=== PATIENT | female | born 1955 | race Caucasian/White ===

== ENCOUNTER 2024-04-08 16:31 | Emergency (ER) | payer MEDICARE, OTHER ==
[~2024-04-08] VITALS: Ht 165.1 cm; Wt 105.5 kg
[~2024-04-08 16:31] MED LIST: ASPIRIN 81M81 MG/TA2 PO; BUSPAR DIVIDOSE15 MG PO; COZAAR 50MG50 MG/TAB PO; FLEXERIL 1010 MG/TAB PO; IMURAN 50MG TAB50 MG PO; LAMICTAL200 MG PO; LIPITOR 80MG80 MG PO; LOPRESSOR 225 MG/TAB PO; MIRAPEX 1MG PO; NITROSTAT0.4 MG/TAB SL; NORCO 325 MG-51 TAB PO; PLAQUENIL 200M200 MG PO; PREDNISONE 5MG5 MG PO; PRILOTC PO; PROZAC 10MG10 MG PO; SYNTHROID0.05 MG/TA PO; VITAMIN D250 MCG PO; ZYRTEC ALLERGY10 MG PO
[2024-04-08] MEDS ORDERED: NS 500 ML IV ONE (17:00)
[2024-04-08 17:31] LABS: COLLECTION METHOD CLEAN CATCH
[2024-04-08 17:36] LABS: BASO % 0.5 % (0.0-2.0); EOS # 0.1 K/mm3 (0.0-0.7); EOS % 0.7 % (0.0-4.0); GRAN # 4.2 K/mm3 (1.4-6.5); HEMATOCRIT 44.7 % (37.0-47.0); HEMOGLOBIN 14.8 g/dl (12.5-16.0); LYMPH # 2.5 K/mm3 (1.2-3.4); LYMPH % 32.2 % (20.0-51.0); MEAN CELL VOLUME 94 fl (80.0-100.0); MEAN CORPUSCULAR HEMOGLOBIN 31 pg (27-31); MEAN CORPUSCULAR HGB CONC 33 g/dl (33.0-37.0); MEAN PLATELET VOLUME 8.4 fl (7.4-10.4); MONO # 0.8 K/mm3 (0.1-0.6); MONO % 10.8 % (1.7-9.3); PLATELET COUNT 271 K/mm3 (130-400); RED BLOOD COUNT 4.75 M/mm3 (4.10-5.30); REDCELL DISTRIBUTION WIDTH-CV 12.2 % (11.5-14.5)
[2024-04-08 17:49] LABS: PH 5.5 (5.0-8.5); URINE APPEARANCE CLEAR (CLEAR/HAZY); URINE BLOOD NEGATIVE (NEGATIVE); URINE COLOR YELLOW (YELLOW); URINE GLUCOSE NEGATIVE (NEGATIVE); URINE KETONE NEGATIVE (NEGATIVE); URINE NITRATE NEGATIVE (NEGATIVE); URINE PROTEIN(semi-quant) NEGATIVE (NEGATIVE)
[2024-04-08 17:56] LABS: ALANINE AMINOTRANSFERASE 17 U/L (0-55); ALBUMIN 3.5 g/dL (3.4-4.8); ALKALINE PHOSPHATASE 76 U/L (40-150); ANION GAP 12 mmol/L (7-16); AST,SGOT 16 U/L (5-34); BILIRUBIN,TOTAL 0.4 mg/dL (0.2-1.2); BLOOD UREA NITROGEN 20 mg/dL (10-20); CALCIUM 9.4 mg/dL (8.4-10.2); CHLORIDE 106 mEq/L (98-107); CREATININE, serum 1.02 mg/dL (0.57-1.11); GLUCOSE 90 mg/dL (70-99); MAGNESIUM 2.2 mg/dL (1.6-2.6); POTASSIUM 3.9 mEq/L (3.5-4.5); SODIUM 142 mEq/L (136-145); TOTAL PROTEIN 7.3 g/dl (6.2-8.1)
[2024-04-08 18:03] LABS: TROPONIN-I < 0.010 ng/mL (0.00-0.033)
[2024-04-08 18:57] VITALS: BP 131/70; PULSE 77; TEMP 98.6
== END 2024-04-08 18:57 | disposition home or self-care (01) ==
LOC: COL.ER 16:31
PROVIDERS: Emergency Medicine
DX: R53.83 Other fatigue (principal); R53.81 Other malaise; Z87.891 Personal history of nicotine dependence; Z88.2 Allergy status to sulfonamides
CPT/HCPCS: J7040